=== PATIENT | female | born 1980 | race Hispanic/Latino ===

== ENCOUNTER 2018-08-31 10:07 | Outpatient (CLI) | payer OTHER ==
--- NOTE | 2018-08-31 11:14 | XRay Report ---
BILATERAL KNEES, 2 VIEWS History: Knee pain. Findings: Normal bone mineralization. No evidence for acute bony injury or joint pathology. A small 1.7 cm osteochondroma is noted projecting medially from the proximal left fibula. Soft tissues are unremarkable. Impression: Essentially unremarkable bilateral knees. No joint pathology. An incidental osteochondroma is noted in the proximal left fibula.
--- NOTE | 2018-08-31 11:15 | XRay Report ---
LUMBOSACRAL SPINE, 3 VIEWS: History: Low back pain, injury Findings: Mild degenerative disc space narrowing and facet arthropathy are identified at L4-5 and L5-S1. The remaining levels are within normal limits. No evidence for fracture, malalignment or bone lesion. No evidence for acute injury. The SI joints and sacrum are unremarkable. Impression: Mild lumbar spondylosis.
--- NOTE | 2018-08-31 11:15 | XRay Report ---
BILATERAL HIPS WITH PELVIS, 3 VIEWS: History: Hip injury. Findings: Bone mineralization is within normal limits. There is no evidence for fracture, dislocation or pelvic diastasis. No advanced joint pathology is detected. The soft tissues are unremarkable. Impression: Normal bilateral hips.
== END 2018-08-31 10:08 | disposition home or self-care (01) ==
LOC: XRAY 10:07
PROVIDERS: ATTEND Internal Medicine
DX: Z02.71 Encounter for disability determination (principal); M47.816 Spondylosis without myelopathy or radiculopathy, lumbar region; D16.22 Benign neoplasm of long bones of left lower limb
CPT/HCPCS: 72100; 73521